=== PATIENT | male | born 1945 | race African-American/Black ===

== ENCOUNTER 2020-10-28 13:03 | Emergency (ER) | payer MEDICARE ==
[~2020-10-28 13:03] MED LIST: MEDROL 4MG DOSEP4 MG PO
== END 2020-10-28 15:30 | disposition home or self-care (01) ==
LOC: FER 13:03
DX: S01.112A Laceration without foreign body of left eyelid and periocular area, initial encounter (principal); S40.012A Contusion of left shoulder, initial encounter; M54.2 Cervicalgia; I10 Essential (primary) hypertension; W18.09XA Striking against other object with subsequent fall, initial encounter
CPT/HCPCS: 70450; 72125; 73030